=== PATIENT | female | born 1950 | race Caucasian/White ===

== ENCOUNTER 2018-12-08 17:02 | Emergency (ER) | payer OTHER ==
[2018-12-08 17:16] VITALS: BP 111/65; PULSE 72; TEMP 98.3; BMI 32.4
--- NOTE | 2018-12-08 17:29 | PDOC ---
History of Present Illness - General Chief Complaint: Psychiatric Stated Complaint: ANXIETY Time Seen by Provider: 12/08/18 17:17 - History of Present Illness Initial Comments: 12/08/18 18:04 68 years old with past medical history significant for hypertension non-tobacco user presents to the ED with brief episode of palpitations and chest discomfort proximally 2 hours ago. Episode happened at rest nonexertional nonradiating chest pressure was described as sharp substernal no associated dizziness lightheadedness diaphoresis patient became very anxious call to who instructed her to come to the emergency department Past History - Past Medical History Allergies/Adverse Reactions: Allergies Allergy/AdvReac Type Severity Reaction Status Date / Time acetaminophen AdvReac Intermediate Hallucinati Verified 12/08/18 17:20 [From Darvocet-N 100] ons propoxyphene napsylate AdvReac Intermediate Hallucinati Verified 12/08/18 17:20 [From Darvocet-N 100] ons DILAUDED Allergy Severe Uncoded 12/08/18 17:20 Home Medications: Ambulatory Orders Atenolol [Tenormin -] 100 mg PO DAILY 12/08/18 Diphenhydramine HCl [Benadryl -] 25 mg PO Q6H 12/08/18 Hydrocodone/Acetaminophen [Hydrocodone-Acetamin 5-325 mg] 1 each PO PRN PRN COPD: No GI Disorders: Yes (REFLUX) Hypercholesterolemia: Yes Other medical history: ANXIETY] - Surgical History Abdominal Surgery: Yes (UMBILICAL HERNIA REPAIR - 20 YEARS AGO) Orthopedic Surgery: Yes (LEFT KNEE SURGERY - 20 YEARS AGO) - Suicide/Smoking/Psychosocial Hx Smoking Status: No Smoking History: Never smoked Have you smoked in the past 12 months: No Number of Cigarettes Smoked Daily: 0 Information on smoking cessation initiated: No Hx Alcohol Use: No Drug/Substance Use Hx: No Hx Substance Use Treatment: No Review of Systems - Review of Systems Comments:: 12/08/18 18:05 ROS: A complete review of 10 out of 10 review of systems is taken and is negative apart from what is previously mentioned below and in the HPI. *Physical Exam - Vital Signs Last Vital Signs Temp Pulse Resp BP Pulse Ox 98.3 F 72 20 111/65 99 12/08/18 17:02 12/08/18 17:02 12/08/18 17:02 12/08/18 17:02 12/08/18 17:02 - Physical Exam Comments: 12/08/18 18:05 Vitals: Triage Vital signs reviewed General Appearance: no acute distress, well nourished well developed, Head: Atraumatic, Neck: Supple;No Nucal rigidity Chest Wall: Nontender Cardiac: Regular rate and rhythym, no murmurs, no rubs, no gallops, Lungs: Clear to auscultation bilateral, good air movement bilaterally, Abdomen: Soft, non distended, normal bowel sounds, non tender to palpation Extremities: Full range of motion to all extremities, no cyanosis, clubbing, or edema Skin: Warm and dry, no rashes or lesions, no rash, no petechiae Psych: normal mood, normal affect Heart Score/ECG Review - History History: Slightly suspicious - Electrocardiogram EKG: Normal - Age Age: >/= 65 - Risk Factors Risk Factors Heart Score: Yes Hx Hypertension Based on the list above the patient has:: 1-2 risk factors - Troponin Troponin: </= normal limit - Score Heart Score - Total: 3 - ECG Impressions Comment:: 12/08/18 18:06 EKG performed at 1634 demonstrates normal sinus rhythm no cell elevations noted T-wave inversions Interpreted by me ED Treatment Course - LABORATORY CBC & Chemistry Diagram: 12/08/18 18:00 12/08/18 18:00 Medical Decision Making - Medical Decision Making 12/08/18 18:08 Atypical chest discomfort. Nonischemic EKG. No PE DVT risk factors. We'll check labs EKG chest x-ray and reassess 1st trop negative, will recomend 2nd [address] Emily Yadav to follow up labs and dispo *DC/Admit/Observation/Transfer Diagnosis at time of Disposition: Chest pain Qualifiers: Chest pain type: unspecified Qualified Code(s): R07.9 - Chest pain, unspecified - Discharge Dispostion Disposition: AGAINST MEDICAL ADVICE Condition at time of disposition: Stable Decision to Admit order: No - Referrals - Patient Instructions Additional Instructions: Your leaving AGAINST MEDICAL ADVICE, by leaving AGAINST MEDICAL ADVICE he accepted responsibility for anything that may happen to after you leave the emergency department this includes but is not limited to a heart attack, passing out, permanent cardiac damage and . If at any time E change her mind please return to the emergency department for further evaluation. Return to the emergency department immediately with ANY new, persistent or worsening symptoms. Continue any medications as previously prescribed by your physician. You should follow up with your primary doctor as soon as possible regarding today's emergency department visit. . Please make sure your doctor reviews the results of your emergency evaluation. Thank you for coming to the Emergency Department today for your care. It was a pleasure to see you today. Please note that your evaluation is INCOMPLETE until you follow-up with your doctor. - Post Discharge Activity
[2018-12-08 18:42] LABS: EOS % 4.2 % (0-4.5); HEMATOCRIT 36.6 % (32.4-45.2); HEMOGLOBIN 12.5 GM/dl (10.7-15.3); LYMPH % 54.8 % (8-40); MCH 32.3 pg (25.7-33.7); MCHC 34.1 g/dl (32.0-36.0); MEAN CELL VOLUME 94.5 fl (80-96); MEAN PLT VOLUME 8.4 fl (7.5-11.1); MONO % 6.2 % (3.8-10.2); NEUT % 33.8 % (42.8-82.8); PLATELET COUNT 259 K/MM3 (134-434); RBC 3.87 M/mm3 (3.60-5.2); RDW 11.9 % (11.6-15.6); WHITE BLOOD COUNT 6.1 K/mm3 (4.0-10.8)
[2018-12-08 18:48] LABS: ALBUMIN 3.6 g/dl (3.4-5.0); BILIRUBIN,TOTAL 0.9 mg/dl (0.2-1); CALCIUM 9.3 mg/dl (8.5-10); CREATININE 0.9 mg/dl (0.55-1.3); POTASSIUM 4.4 mmol/L (3.5-5.1); TOT PROT 6.5 g/dl (6.4-8.2)
--- NOTE | 2018-12-08 19:36 | PDOC ---
*Physical Exam - Vital Signs Last Vital Signs Temp Pulse Resp BP Pulse Ox 98.3 F 72 20 111/65 99 12/08/18 17:02 12/08/18 17:02 12/08/18 17:02 12/08/18 17:02 12/08/18 17:02 ED Treatment Course - LABORATORY CBC & Chemistry Diagram: 12/08/18 18:00 12/08/18 18:00 - ADDITIONAL ORDERS Additional order review: Laboratory Results 12/08/18 12/08/18 18:00 18:00 Sodium 139 Potassium 4.4 Chloride 110 H Carbon Dioxide 24 Anion Gap 5 L BUN 18.0 Creatinine 0.9 Est GFR (CKD-EPI)AfAm 76.68 Est GFR (CKD-EPI)NonAf 66.16 Random Glucose 72 L Calcium 9.3 Total Bilirubin 0.9 AST 19 ALT 24 Alkaline Phosphatase 42 L Troponin I < 0.03 Total Protein 6.5 Albumin 3.6 12/08/18 18:00 RBC 3.87 MCV 94.5 MCHC 34.1 RDW 11.9 MPV 8.4 Neutrophils % 33.8 L Lymphocytes % 54.8 H Monocytes % 6.2 Eosinophils % 4.2 Basophils % 1.0 Progress Note - Progress Note Progress Note: Care of this patient was transferred to [place] from Dr. Samano at 1900 hrs. Patient is a 68-year-old female who had an episode of chest pain prior to arrival. Patient's initial troponin was negative. Patient's EKG had no acute changes was a normal EKG. Patient will get a repeat troponin 3 hours after the first if negative patient will be discharged and follow-up with her primary care doctor. Patient's symptoms were most likely secondary to anxiety. Patient refused a repeat troponin. Patient will be discharged AGAINST MEDICAL ADVICE. Patient understands that if anything changes symptoms worsen or for any reason she becomes concerned that she should return to the emergency department. Patient understood and was explained risk of leaving AGAINST MEDICAL ADVICE including acute coronary event, cardiac arrest and *DC/Admit/Observation/Transfer Diagnosis at time of Disposition: Chest pain Qualifiers: Chest pain type: unspecified Qualified Code(s): R07.9 - Chest pain, unspecified - Discharge Dispostion Disposition: AGAINST MEDICAL ADVICE Condition at time of disposition: Stable Decision to Admit order: No - Referrals - Patient Instructions Additional Instructions: Your leaving AGAINST MEDICAL ADVICE, by leaving AGAINST MEDICAL ADVICE he accepted responsibility for anything that may happen to after you leave the emergency department this includes but is not limited to a heart attack, passing out, permanent cardiac damage and . If at any time E change her mind please return to the emergency department for further evaluation. Return to the emergency department immediately with ANY new, persistent or worsening symptoms. Continue any medications as previously prescribed by your physician. You should follow up with your primary doctor as soon as possible regarding today's emergency department visit. . Please make sure your doctor reviews the results of your emergency evaluation. Thank you for coming to the Emergency Department today for your care. It was a pleasure to see you today. Please note that your evaluation is INCOMPLETE until you follow-up with your doctor. - Post Discharge Activity
--- NOTE | 2018-12-09 09:31 | EKG ---
Test Reason : Blood Pressure : / mmHG Vent. Rate : 064 BPM Atrial Rate : 064 BPM P-R Int : 168 ms QRS Dur : 088 ms QT Int : 408 ms P-R-T Axes : 043 017 007 degrees QTc Int : 420 ms NORMAL SINUS RHYTHM NORMAL ECG NO PREVIOUS ECGS AVAILABLE Confirmed by Chase Maria MD ([id number]) on 12/09/2018 9:31:29 AM Referred By: Confirmed By:Chase Maria MD
== END 2018-12-08 20:30 | disposition left against medical advice (07) ==
LOC: FER 17:02
DX: R07.9 Chest pain, unspecified (principal); I10 Essential (primary) hypertension; K21.9 Gastro-esophageal reflux disease without esophagitis
CPT/HCPCS: 36415; 71045-TC-FY; 80053; 84443; 84484; 85025; 93005; 99282-25

== ENCOUNTER 2020-03-28 11:23 | Day surgery (SDC) | payer OTHER ==
[2020-03-22 11:51] VITALS: BMI 29.2
[2020-03-28] MEDS: PHENYLEPHRINE 2.5% OPHTH SOLN 15 ML BOTTLE ONE ×3 (11:55→12:05)
[2020-03-28] MEDS: TROPICAMIDE 1% OPHTH SOLN 15 ML BOTTLE ONE ×3 (11:55→12:05)
[2020-03-28] MEDS: CIPROFLOXACIN 0.3% EYE DROPS 5 ML BOTTLE ONE ×3 (11:55→12:05)
[2020-03-28] MEDS: CYCLOPENTOLATE 2% OPHTH SOLN 2 ML BOTTLE ONE ×3 (11:55→12:05)
[2020-03-28] MEDS ORDERED: MIDAZOLAM HCL 2 MG/2 ML SINGLE DOSE VIAL ONE ×2 (13:44→14:10)
[2020-03-28] MEDS ORDERED: BSS (NA/CA/MG/K) BALANCED SALT SOLUTION OPHTH SOLN 15 ML BOTTLE ONE (13:58)
[2020-03-28] MEDS ORDERED: LIDOCAINE 1% P/F 10 MG/ML VIAL ONE (13:58)
[2020-03-28] MEDS ORDERED: NEO/POLYMYX B SULF/DEXAMETH OPHTHALMIC 5ML BOTTLE ONE (13:59)
[2020-03-28] MEDS ORDERED: ONDANSETRON 4 MG/2 ML VIAL ONE (14:13)
[2020-03-28 14:59] VITALS: TEMP 97.7
[2020-03-28 15:02] VITALS: BP 120/60; PULSE 70
== END 2020-03-28 14:45 | disposition home or self-care (01) ==
LOC: FASU 11:23
PROVIDERS: ATTEND Ophthalmology
PROC: 08RK3JZ Replacement of Left Lens with Synthetic Substitute, Percutaneous Approach (ICD-10-PCS; principal; 2020-03-28 14:13)
DX: H26.8 Other specified cataract (principal); H40.9 Unspecified glaucoma; I10 Essential (primary) hypertension

== ENCOUNTER 2020-04-19 12:06 | Emergency (ER) | payer OTHER | END 2020-04-19 13:03 | disposition home or self-care (01) | LOC: JVIRT 12:06 | DX: U07.1 COVID-19 (principal) | CPT/HCPCS: C9803; G2012-GT; U0003 ==

== ENCOUNTER 2020-05-02 18:33 | Emergency (ER) | payer OTHER | END 2020-05-02 19:19 | disposition home or self-care (01) | LOC: JVIRT 18:33 | DX: R53.1 Weakness (principal); Z11.59 Encounter for screening for other viral diseases | CPT/HCPCS: C9803; G2012-GT; U0003 ==

== ENCOUNTER 2020-11-25 05:05 | Emergency (ER) | payer OTHER ==
[2020-11-25 05:18] VITALS: BP 123/77; TEMP 97.6; BMI 32.9
[2020-11-25] MEDS ORDERED: LORazepam 2 MG/ML SDV VIAL ONE (05:34)
[2020-11-25] MEDS ORDERED: LORazepam 2 MG/ML SDV VIAL IM ONE (05:34)
[2020-11-25] MEDS ORDERED: SODIUM CHLORIDE 1,000 ML IV STA (06:26)
[2020-11-25] MEDS ORDERED: ACETAMINOPHEN 1000 MG/100 ML VIAL (NON FORMULARY) IVPB ONE (07:00)
[2020-11-25] MEDS ORDERED: ACETAMINOPHEN INJECTION 100 ML IVPB ONE (07:05)
[2020-11-25 07:42] LABS: INR 0.9 (0.83-1.09); PROTHROMBIN TIME (PATIENT) 11.1 SEC (9.7-13.0)
[2020-11-25 07:57] LABS: BASO % 0.8 % (0-2.0); EOS % 2.1 % (0-4.5); HEMATOCRIT 39.9 % (32.4-45.2); HEMOGLOBIN 13.2 GM/dL (10.7-15.3); LYMPH % 60.5 % (8-40); MCH 31.5 pg (25.7-33.7); MCHC 33.1 g/dl (32.0-36.0); MEAN CELL VOLUME 95.1 fl (80-96); MEAN PLT VOLUME 8.9 fl (7.5-11.1); MONO % 4.9 % (3.8-10.2); NEUT % 31.7 % (42.8-82.8); PLATELET COUNT 453 10^3/uL (134-434); RDW 14.8 % (11.6-15.6); WHITE BLOOD COUNT 10.1 K/mm3 (4.0-10.0)
[2020-11-25 08:05] LABS: ACTIVATED PTT 26.5 SECONDS (25.2-36.5)
[2020-11-25 08:15] LABS: N-TERMINAL BNP 1940.5 pg/ml (5-125)
[2020-11-25 08:22] VITALS: PULSE 73
[2020-11-25 08:52] LABS: ALBUMIN 3.3 g/dl (3.4-5.0); BILIRUBIN,TOTAL 0.4 mg/dL (0.2-1); BLOOD UREA NITROGEN 13.5 mg/dL (7-18); CALCIUM 9.6 mg/dL (8.5-10.1); CREATININE 1.1 mg/dL (0.55-1.3); TOT PROT 6.8 g/dl (6.4-8.2)
[2020-11-25 10:44] LABS: ANISOCYTOSIS 0; MACROCYTOSIS 1+; PLATELET ESTIMATE NORMAL
== END 2020-11-25 10:38 | disposition home or self-care (01) ==
LOC: FER 05:05
PROC: 3E023NZ Introduction of Analgesics, Hypnotics, Sedatives into Muscle, Percutaneous Approach (ICD-10-PCS; principal; 2020-11-25)
PROC: 3E033NZ Introduction of Analgesics, Hypnotics, Sedatives into Peripheral Vein, Percutaneous Approach (ICD-10-PCS; 2020-11-25)
PROC: 3E0337Z Introduction of Electrolytic and Water Balance Substance into Peripheral Vein, Percutaneous Approach (ICD-10-PCS; 2020-11-25)
DX: T88.9XXA Complication of surgical and medical care, unspecified, initial encounter (principal); R10.9 Unspecified abdominal pain; R06.02 Shortness of breath
CPT/HCPCS: 36415; 71045-TC-FY; 71275-TC; 80053; 81003; 83880; 84484; 85025; 85379; 85610; 85730; 87086; 93005; 99285-25; J0131